=== PATIENT | female | born 1985 | race African-American/Black ===

== ENCOUNTER 2018-02-14 08:51 | Emergency (ER) | payer MEDICAID, OTHER ==
[~2018-02-14] VITALS: Ht 165.1 cm; Wt 81.6 kg
[2018-02-14 08:59] VITALS: BP 137/68
[2018-02-14] MEDS ORDERED: ACETAMINOPHEN 500 MG TABLET PO ONE (09:00)
--- NOTE | 2018-02-14 09:02 | PHYS DOC ---
Past Medical History Past Medical History: Abscess, Ovarian Cyst Past Surgical History: , Other Additional Past Surgical Histo: Labial abscess? Alcohol Use: Occasionally Drug Use: None Adult General HPI HPI Patient is a 33 year old female who presents to the ER for evaluation of left ankle. Patient states that she stepped in a hole while and related outside. Patient states that she is unable to bear weight since injury. This occurred approximately 30 minutes prior to arrival. 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 Patient reports pain as 10 out of 10, worse with movement, sharp, localized the lateral ankle. Review of Systems Review of Systems Constitutional: Denies fever or chills [] Respiratory: Denies cough or shortness of breath [] Cardiovascular: No chest pain, no lower extremity edema GI: Denies abdominal pain, nausea, vomiting, bloody stools or diarrhea [] : Denies dysuria or hematuria [] Musculoskeletal: Joint pain present Integument: Denies rash or skin lesions [] Neurologic: Denies headache, focal weakness or sensory changes [] Endocrine: Denies polyuria or polydipsia [] All other systems were reviewed and found to be within normal limits, except as documented in this note. Current Medications Current Medications Current Medications Medications (Trade) Dose Ordered Sig/Sunny Start Time Stop Time Status Last Admin Dose Admin Acetaminophen (Tylenol) 1,000 mg 1X ONCE 02/14/18 09:00 02/14/18 09:08 DC 02/14/18 09:16 1,000 MG Allergies Allergies Allergies Coded Allergies Type Severity Reaction Last Updated Verified No Known Drug Allergies 07/05/13 No Physical Exam Physical Exam Constitutional: Obese, no acute distress, nontoxic appearing HENT: Normocephalic, atraumatic Eyes: PERRLA, EOMI, or. [] Cardiovascular: Bilateral DP pulses +2 out of 4 Lungs & Thorax: No respiratory distress Skin: Warm, dry, no erythema, no rash. [] Extremities: Single with no obvious deformity or edema. Patient does have some mild to moderate tenderness to lateral aspect of left ankle overlying the lateral ligaments. Patient does not have any proximal fibular tenderness and has normal range of motion of her left knee. Patient has intact plantar and dorsiflexion. DP pulse +2 out of 4, distal cap refill less than 2 seconds. Distal sensation intact. Neurologic: Alert and oriented X 3, no focal deficits noted. [] Psychologic: Affect normal, judgement normal, mood normal. [] Current Patient Data Vital Signs Vital Signs Date Time Temp Pulse Resp B/P (MAP) Pulse Ox O2 Delivery O2 Flow Rate FiO2 02/14/18 08:59 99.0 91 18 137/68 (91) 95 Room Air 99.0 EKG EKG [] Radiology/Procedures Radiology/Procedures Foot Left IMPRESSION: No acute osseous findings. Electronically signed by: Aung Shaffer MD (02/14/2018 10:55 AM) [id number] [] Left Ankle Impression: 1. No ankle fracture identified. 2. Question slight irregularity of the base of the 2nd metatarsal. Is concern for Lisfranc fracture-dislocation, recommend dedicated weightbearing 3 view radiographs of the foot. Electronically signed by: Junior Fonseca MD (02/14/2018 9:22 AM) [facility] Course & Med Decision Making Course & Med Decision Making Pertinent Labs and Imaging studies reviewed. (See chart for details) []X-rays with no acute findings. Discussed supportive care. Patient provided with LE boot. Discussed [id number] medications. ER return precautions given. Patient verbalized understanding. All questions answered. Dragon Disclaimer Dragon Disclaimer This electronic medical record was generated, in whole or in part, using a voice recognition dictation system. Departure Departure Impression: Primary Impression: Left ankle pain Disposition: 01 HOME, SELF-CARE Condition: STABLE Referrals: DEIDRE LAM (PCP) Patient Instructions: Ankle Sprain, Ankle Sprain, [id number] Additional Instructions: Thank you for coming to [facility]. Please repeat the attached handouts. Please follow-up with your primary care physician. Return to the ER if your symptoms worsen or you have any other concerns. Please take ibuprofen 600 mg every 6-8 hours for pain. Alternate this with Tylenol/Acetaminophen 1000 mg every 6 hours. Do not exceed 4000 mg of acetaminophen in a 24-hour period. BRUNO HICKMAN DO Feb 14, 2018 09:02
--- NOTE | 2018-02-14 09:26 | RAD ---
History: Rolled ankle stepping in pothole. Pain. Comparison: None. Findings: AP, lateral, and oblique views of the left ankle. No acute fracture or dislocation is identified involving the ankle joint. Small Achilles tendon insertional enthesophyte is present. On the oblique view, there is appearance of slight irregularity of the base of 2nd metatarsal. Impression: 1. No ankle fracture identified. 2. Question slight irregularity of the base of the 2nd metatarsal. Is concern for Lisfranc fracture-dislocation, recommend dedicated weightbearing 3 view radiographs of the foot. Electronically signed by: Junior Fonseca MD (02/14/2018 9:22 AM) [place] [id number]
--- NOTE | 2018-02-14 10:58 | RAD ---
Examination: 3 views of the left foot HISTORY: History of pain in the lateral aspect of the ankle, injury COMPARISON: None available FINDINGS: The alignment of the tarsal bones, tarsometatarsal joints, metatarsophalangeal joints, interphalangeal joints grossly appears unremarkable. No acute fracture or dislocation identified. IMPRESSION: No acute osseous findings. Electronically signed by: Aung Shaffer MD (02/14/2018 10:55 AM) [id number]
== END 2018-02-14 11:26 | disposition home or self-care (01) ==
LOC: ER 08:51
DX: M25.572 Pain in left ankle and joints of left foot (principal); G89.11 Acute pain due to trauma; E66.9 Obesity, unspecified; Z68.30 Body mass index [BMI] 30.0-30.9, adult; W17.2XXA Fall into hole, initial encounter; Y93.89 Activity, other specified; Y92.89 Other specified places as the place of occurrence of the external cause; Y99.8 Other external cause status
CPT/HCPCS: 73610; 73630; 99284